=== PATIENT | male | born 1970 | race American Indian/Alaskan Native ===

== ENCOUNTER 2016-12-14 11:56 | Emergency (ER) | payer OTHER ==
--- NOTE | 2016-12-14 18:21 | Emergency Department Report ---
ED ENT HPI - General Chief complaint: Dental/Oral Stated complaint: TOOTHACHE/POSS ABSCESS Time Seen by Provider: 12/14/16 17:38 Source: patient Mode of arrival: Ambulatory Limitations: No Limitations - History of Present Illness Initial comments: 46-year-old male past medical history obesity, smoker, hypertension, hyperlipidemia presents with complaint of one week of left upper toothache. Patient denies any blood or pus drainage from mouth, no difficulty speaking no difficulty swallowing liquids or solids. Patient states he has some discomfort with chewing, denies any facial swelling. Patient states he knows he has had cavity in tooth for some time but has not yet adjusted. As any fever chills headache no blurry vision no earache MD complaint: tooth pain Onset/Timin -: week(s) Location: tooth # (14) Severity: moderate Severity scale (0 -10): 6 Quality: aching Consistency: constant Improves with: none Worsens with: eating Context- Dental: history of dental caries, poor dental care - Related Data Home Medications Medication Instructions Recorded Confirmed Last Taken Atenolol [Tenormin] 1 tab PO DAILY 09/18/13 01/07/14 11/13/13 11:00 Hydrochlorothiazide 1 tab PO DAILY 09/18/13 01/07/14 11/13/13 11:00 Simvastatin 1 tab PO QDAY 09/21/13 01/07/14 11/13/13 11:00 Previous Rx's Medication Instructions Recorded Last Taken Type Oxycodone HCl/Acetaminophen 1 each PO Q6HR PRN #20 tablet 12/17/13 Unknown Rx [Percocet 10/325 mg] Prednisone [predniSONE 10 mg 10 mg PO .TAPER #1 tab.ds.pk 12/17/13 Unknown Rx (6-Day Pack, 21 Tabs)] Diazepam Tab [Valium] 5 mg PO QID PRN #16 tablet 01/07/14 Unknown Rx HYDROcodone/APAP 10-325 [[place] 1 each PO Q6HR PRN #12 tablet 01/07/14 Unknown Rx 10/325] Acetaminophen/Codeine [Tylenol #3] 1 tab PO Q6H PRN #12 tab 12/14/16 Unknown Rx Amoxicillin [Trimox CAP] 500 mg PO Q8H #30 capsule 12/14/16 Unknown Rx Chlorhexidine Mouthwash [Peridex] 118 ml MM TID #1 bottle 12/14/16 Unknown Rx Ibuprofen [Motrin] 600 mg PO Q8H PRN #25 tablet 12/14/16 Unknown Rx Allergies Allergy/AdvReac Type Severity Reaction Status Date / Time No Known Allergies Allergy Verified 12/14/16 13:03 ED Dental HPI - General Chief complaint: Dental/Oral Stated complaint: TOOTHACHE/POSS ABSCESS Time Seen by Provider: 12/14/16 17:38 Source: patient Mode of arrival: Ambulatory Limitations: No Limitations - Related Data Home Medications Medication Instructions Recorded Confirmed Last Taken Atenolol [Tenormin] 1 tab PO DAILY 09/18/13 01/07/14 11/13/13 11:00 Hydrochlorothiazide 1 tab PO DAILY 09/18/13 01/07/14 11/13/13 11:00 Simvastatin 1 tab PO QDAY 09/21/13 01/07/14 11/13/13 11:00 Previous Rx's Medication Instructions Recorded Last Taken Type Oxycodone HCl/Acetaminophen 1 each PO Q6HR PRN #20 tablet 12/17/13 Unknown Rx [Percocet 10/325 mg] Prednisone [predniSONE 10 mg 10 mg PO .TAPER #1 tab.ds.pk 12/17/13 Unknown Rx (6-Day Pack, 21 Tabs)] Diazepam Tab [Valium] 5 mg PO QID PRN #16 tablet 01/07/14 Unknown Rx HYDROcodone/APAP 10-325 [[place] 1 each PO Q6HR PRN #12 tablet 01/07/14 Unknown Rx 10/325] Acetaminophen/Codeine [Tylenol #3] 1 tab PO Q6H PRN #12 tab 12/14/16 Unknown Rx Amoxicillin [Trimox CAP] 500 mg PO Q8H #30 capsule 12/14/16 Unknown Rx Chlorhexidine Mouthwash [Peridex] 118 ml MM TID #1 bottle 12/14/16 Unknown Rx Ibuprofen [Motrin] 600 mg PO Q8H PRN #25 tablet 12/14/16 Unknown Rx Allergies Allergy/AdvReac Type Severity Reaction Status Date / Time No Known Allergies Allergy Verified 12/14/16 13:03 ED Review of Systems ROS: Stated complaint: TOOTHACHE/POSS ABSCESS Other details as noted in HPI Constitutional: denies: chills, fever Eyes: denies: eye pain, eye discharge, vision change ENT: dental pain. denies: ear pain, throat pain Respiratory: denies: cough, shortness of breath, wheezing Cardiovascular: denies: chest pain, palpitations Endocrine: no symptoms reported Gastrointestinal: denies: abdominal pain, nausea, diarrhea Genitourinary: denies: urgency, dysuria Musculoskeletal: denies: back pain, joint swelling, arthralgia Skin: denies: rash, lesions Neurological: denies: headache, weakness, paresthesias Psychiatric: denies: anxiety, depression Hematological/Lymphatic: denies: easy bleeding, easy bruising ED Past Medical Hx - Past Medical History Hx Hypertension: Yes (2011) Hx Seizures: Yes Additional medical history: high cholesterol. pinched nerve in groin. trigeminal neuralgia - Surgical History Past Surgical History?: No - Social History Smoking Status: Current Every Day Smoker Substance Use Type: None - Medications Home Medications: Home Medications Medication Instructions Recorded Confirmed Last Taken Type Atenolol [Tenormin] 1 tab PO DAILY 09/18/13 01/07/14 11/13/13 11:00 History Hydrochlorothiazide 1 tab PO DAILY 09/18/13 01/07/14 11/13/13 11:00 History Simvastatin 1 tab PO QDAY 09/21/13 01/07/14 11/13/13 11:00 History Oxycodone HCl/Acetaminophen 1 each PO Q6HR PRN #20 tablet 12/17/13 01/07/14 Unknown Rx [Percocet 10/325 mg] Prednisone [predniSONE 10 mg 10 mg PO .TAPER #1 tab.ds.pk 12/17/13 01/07/14 Unknown Rx (6-Day Pack, 21 Tabs)] Diazepam Tab [Valium] 5 mg PO QID PRN #16 tablet 01/07/14 Unknown Rx HYDROcodone/APAP 10-325 [[place] 1 each PO Q6HR PRN #12 tablet 01/07/14 Unknown Rx 10/325] Acetaminophen/Codeine [Tylenol #3] 1 tab PO Q6H PRN #12 tab 12/14/16 Unknown Rx Amoxicillin [Trimox CAP] 500 mg PO Q8H #30 capsule 12/14/16 Unknown Rx Chlorhexidine Mouthwash [Peridex] 118 ml MM TID #1 bottle 12/14/16 Unknown Rx Ibuprofen [Motrin] 600 mg PO Q8H PRN #25 tablet 12/14/16 Unknown Rx ED Physical Exam - General Limitations: No Limitations General appearance: alert, in no apparent distress - Head Head exam: Present: atraumatic, normocephalic - Eye Eye exam: Present: normal appearance, PERRL, EOMI - ENT ENT exam: Present: mucous membranes moist - Expanded ENT Exam Expanded Mouth exam: Present: normal external inspection, tongue normal Teeth exam: Present: dental caries, dental tenderness # (pain tooth #14), gingival enlargement - Neck Neck exam: Present: normal inspection, full ROM - Respiratory Respiratory exam: Present: normal lung sounds bilaterally. Absent: respiratory distress - Cardiovascular Cardiovascular Exam: Present: regular rate, normal rhythm. Absent: systolic murmur, diastolic murmur, rubs, gallop - GI/Abdominal GI/Abdominal exam: Present: soft, normal bowel sounds - Rectal Rectal exam: Present: deferred - Extremities Exam Extremities exam: Present: normal inspection - Back Exam Back exam: Present: normal inspection - Neurological Exam Neurological exam: Present: alert, oriented X3 - Psychiatric Psychiatric exam: Present: normal affect, normal mood - Skin Skin exam: Present: warm, dry, intact, normal color. Absent: rash ED Course Vital Signs 12/14/16 13:00 Temperature 98.0 F Pulse Rate 73 Respiratory 18 Rate Blood Pressure 150/92 O2 Sat by Pulse 99 Oximetry ED Medical Decision Making - Medical Decision Making A/P: Dental cavity 1-Motrin, Tylenol 3, amoxicillin x 10 days, Peridex mouthwash 2-patient advised to follow up as soon as possible for dental cavity. I advised patient that lack of follow-up and untreated dental cavity can result in infection to come his face and jaw and if left untreated can progress to sepsis and become lethal. Patient understood these instructions and agreed to follow-up on outpatient basis with dentist as soon as possible. no current evidence of dental abscess 3-advised to return to ED [facility] for any significant bleeding pus drainage from oral cavity inability to tolerate by mouth, dyspnea shortness of breath muffled voice and/or stridor Critical care attestation.: If time is entered above; I have spent that time in minutes in the direct care of this critically ill patient, excluding procedure time. ED Disposition Clinical Impression: Dental cavity, Toothache Disposition: DISCHARGED TO HOME OR SELFCARE Is pt being admited?: No Does the pt Need Aspirin: No Condition: Stable Instructions: Dental Caries (ED), Toothache (ED) Prescriptions: Acetaminophen/Codeine [Tylenol #3] 1 tab PO Q6H PRN #12 tab PRN Reason: Toothache Amoxicillin [Trimox CAP] 500 mg PO Q8H #30 capsule Chlorhexidine Mouthwash [Peridex] 118 ml MM TID #1 bottle Ibuprofen [Motrin] 600 mg PO Q8H PRN #25 tablet PRN Reason: Pain Referrals: [facility] [Outside] - 3-5 Days Time of Disposition: 18:20
[2016-12-14 18:36] VITALS: BP 148/90
== END 2016-12-14 18:35 | disposition home or self-care (01) ==
LOC: ED 11:56
DX: K02.9 Dental caries, unspecified (principal); I10 Essential (primary) hypertension; R56.9 Unspecified convulsions; E78.00 Pure hypercholesterolemia, unspecified; F17.200 Nicotine dependence, unspecified, uncomplicated
CPT/HCPCS: 99282